=== PATIENT | female | born 1950 | race Caucasian/White ===

== ENCOUNTER 2017-01-16 20:41 | Emergency (ER) | payer OTHER ==
[~2017-01-16] VITALS: Ht 165.1 cm; Wt 111.5 kg
[2017-01-16 20:45] VITALS: BP 154/76; PULSE 82; RESP 24; TEMP 98; O2SAT 96
[2017-01-16] MEDS ORDERED: METO-424 PO (21:07)
--- NOTE | 2017-01-16 21:07 | PD ---
HPI Chief Complaint: R Shoulder Pain Time Seen by Provider: 20:54 Travel History International Travel<30 days: No Contact w/Intl Traveler<30days: No History of Present Illness HPI 66-year-old female arrives with a complaint of pain in the region of the posterior right shoulder primarily in the trapezius distribution with some radiation to the level of the midportion of the humerus. Symptoms became quite severe about an hour and half ago. A few days ago she had been somewhat more active than normal involved with packing and moving. She was seen in urgent care center that sent her here for further investigation. Today the pain has become constant and severe. She's had no numbness tingling or weakness in either upper extremity. Left upper extremity feels normal. No recent fever. No hx neoplasia/cancer, no history immunomodulator medication. No fecal incontinence or urinary overflow incontinence. No chest pain. Pt reported shortness of breath to triage nurse however to me reports symptoms c/w copd. She denied cp and fever. PFSH Past Medical History COPD: Yes Social History Alcohol Use: No Tobacco Use: No Substance Use: No Allergies-Medications (Allergen,Severity, Reaction): Coded Allergies: Sulfa (Verified Adverse Reaction, Severe, Itching, 01/16/17) Baclofen (Verified Adverse Reaction, Mild, Psychosis, 01/16/17) Reported Meds & Prescriptions Reported Meds & Active Scripts Active Guaifenesin AC Liq (Guaifenesin-Codeine Liq) 100-10 Mg/5 Ml Syrp 10 Ml PO HS PRN 5 Days Prednisone 20 Mg Tab 40 Mg PO DAILY 4 Days Take 40 mg (2 tablets) daily for 5 days Reported Co Q 10 (Coenzyme Q10 (Ubidecarenone)) 10 Mg Cap Unknown Dose PO DAILY [crill oil] PO DAILY Probiotic (L.acidoph,Paracasei, B.lactis) 1 Each Capsule PO DAILY Vitamin B52-[id number] Acid (Cobalamine Combinations) 500-400 Mcg Tab 1 Tab PO DAILY Fenofibrate 40 Mg Tab Unknown Dose PO HS Breo Ellipta Inh (Fluticasone/Vilanterol) 200-25 Mcg/Act Inh 1 Puff INH DAILY Use daily at the same time. Levothyroxine (Levothyroxine Sodium) 75 Mcg Tab 75 Mcg PO DAILY Ranitidine (Ranitidine HCl) 150 Mg Cap Unknown Dose PO DAILY Nexium (Esomeprazole DR) 20 Mg Capdr Unknown Dose PO HS Nexium (Esomeprazole DR) 20 Mg Capdr Unknown Dose PO DAILY Metformin (Metformin HCl) 500 Mg Tab Unknown Dose PO TIDPC With meals Metoprolol Tartrate 37.5 Mg Tab Unknown Dose PO BID Review of Systems Except as stated in HPI: all other systems reviewed are Neg General / Constitutional: No: Fever Physical Exam Narrative GENERAL: 66 yo F, mild to moderate distress 2/2 pain, pleasant SKIN: Warm and dry. HEAD: Atraumatic. Normocephalic. EYES: Pupils equal and round. No scleral icterus. No injection or drainage. ENT: No nasal bleeding or discharge. Mucous membranes pink and moist. NECK: Trachea midline. No JVD. CARDIOVASCULAR: Regular rate and rhythm. RESPIRATORY: No accessory muscle use. Clear to auscultation. Breath sounds equal bilaterally. GASTROINTESTINAL: Abdomen soft, non-tender, nondistended. Hepatic and splenic margins not palpable. MUSCULOSKELETAL: Extremities without clubbing, cyanosis, or edema. No obvious deformities. NEUROLOGICAL: Awake and alert. No obvious cranial nerve deficits. Motor grossly within normal limits. Five out of 5 muscle strength in the arms and legs. Normal speech. PSYCHIATRIC: Appropriate mood and affect; insight and judgment normal. Data Data Last Documented VS Vital Signs Date Time Temp Pulse Resp B/P Pulse Ox O2 Delivery O2 Flow Rate FiO2 01/16/17 22:41 18 01/16/17 22:11 87 130/82 99 Room Air 01/16/17 20:45 98.0 VS reviewed Orders Electrocardiogram (01/16/17 20:54) Chest, Single Ap (01/16/17 20:54) Acetamin-Hydrocod 325-5 Mg ([place] 5-325 (01/16/17 21:15) Ketorolac Inj (Toradol Inj) (01/16/17 21:15) Oxycodone (Roxicodone) (01/16/17 21:45) Prednisone (Deltasone) (01/16/17 21:45) Albuterol-Ipratropium Neb (Duoneb Neb) (01/16/17 21:45) ^ Sling (01/16/17 21:40) Prednisone (Deltasone) (01/16/17 22:00) MDM Medical Decision Making Medical Screen Exam Complete: Yes Emergency Medical Condition: Yes Medical Record Reviewed: Yes Differential Diagnosis radiculopathy, glenohumeral disease, septic arthritis, coronary disease Narrative Course Last 24 hours Impressions Chest X-Ray 01/16/172053 Signed Impressions: Service Date/Time: Monday, January 16, 2017 21:09 - CONCLUSION: The lungs are clear. Cruz Verma MD At time of reassessment approximately 9:15 PM the patient reported some shortness of breath and a cough. The cough is chronic. The shortness of breath has gotten worse over the past few days. She reports finishing a course of azithromycin and prednisone within the past week or so. DuoNeb ordered along with oral prednisone. Patient reports significant improvement at time of reassessment approximately 10:15pm. Return precautions were discussed at that point. Follow up with Dr. Ochoa was also discussed which the patient was agreeable with as a plan. Diagnosis Primary Impression: Shoulder pain, right Qualified Code: M25.511 - Acute pain of right shoulder Additional Impression: COPD (chronic obstructive pulmonary disease) Qualified Code: J44.9 - Chronic obstructive pulmonary disease, unspecified COPD type Referrals: David Ochoa MD 2 days Additional Instructions: You have a choice when it comes to health care, and we are glad that you chose [facility]. Hopefully, we have met your expectations on today's visit. You are welcome to return to [facility] at any time, as we are committed to meeting the health care needs of our community. Med/Other Pt SpecificInfo: Prescription(s) given Scripts Guaifenesin-Codeine Liq (Guaifenesin AC Liq)100-10 Mg/5 Ml Syrp10 Ml PO HS PRN ( COUGH) 5 Days Ref 0 Prov:Dimas Forte MD 01/16/17 Prednisone 20 Mg Tab40 Mg PO DAILY 4 Days Ref 0 Take 40 mg (2 tablets) daily for 5 days Prov:Dimas Forte MD 01/16/17 Disposition: 01 DISCHARGE HOME Condition: Stable Dimas Forte MD Jan 16, 2017 21:07
[2017-01-16] MEDS ORDERED: NEXI20CA PO ×2 (21:10)
[2017-01-16] MEDS ORDERED: LEVO75TA3 PO (21:10)
[2017-01-16] MEDS ORDERED: FENO1TAB46 PO (21:10)
[2017-01-16] MEDS ORDERED: FLUT1INH7 INH (21:10)
[2017-01-16] MEDS ORDERED: RANI150C PO (21:10)
[2017-01-16] MEDS ORDERED: METF500T PO (21:10)
[2017-01-16] MEDS ORDERED: [UNRECOGNIZED DRUG - OTHER] PO (21:14)
[2017-01-16] MEDS ORDERED: VITATAB43 PO (21:14)
[2017-01-16] MEDS ORDERED: CO Q10CA PO (21:14)
[2017-01-16] MEDS ORDERED: crill oil PO (21:14)
[2017-01-16] MEDS ORDERED: KETOROLAC TROMETHAMINE 60 MG/2 ML (IM) VIAL IM ONE (21:15)
[2017-01-16] MEDS ORDERED: ACETAMINOPHEN/HYDROcodone 325 MG/5 MG TAB PO ONE (21:15)
--- NOTE | 2017-01-16 21:23 | RADRPT ---
EXAM DATE/TIME: 01/16/2017 21:09 [facility] COMPARISON: No previous studies available for comparison. INDICATIONS : Right chest and shoulder pain. MEDICAL HISTORY : None. SURGICAL HISTORY : None. ENCOUNTER: Initial ACUITY: 1 day PAIN SCORE: 8/10 LOCATION: Right chest FINDINGS: A single view of the chest demonstrates the lungs to be symmetrically aerated without evidence of mas s, infiltrate or effusion. The cardiomediastinal contours are unremarkable. Osseous structures are intact. CONCLUSION: The lungs are clear. Cruz Verma MD on January 16, 2017 at 21:21 Board Certified Radiologist. This report was verified electronically.
[2017-01-16] MEDS ORDERED: predniSONE 20 MG TAB PO ONE ×2 (21:45→22:00)
[2017-01-16] MEDS: RESP: ALBUTEROL 2.5 MG/IPRATROPIUM 0.5 MG NEB (SCH) INH ×2 (21:50→21:51)
[2017-01-16] MEDS ORDERED: GUAISYP4 PO (22:04)
[2017-01-16] MEDS ORDERED: PRED20 PO (22:04)
[2017-01-16 22:11] VITALS: BP 130/82; PULSE 87; RESP 18; O2SAT 99
[2017-01-16 22:41] VITALS: RESP 18
--- NOTE | 2017-01-17 13:14 | EKG ---
Date Performed: 01/16/2017 Time Performed: 20:56:48 PTAGE: 66 years EKG: Sinus rhythm NORMAL ECG NO PREVIOUS TRACING DOCTOR: Donavan Redmond Interpretating Date/Time 01/17/2017 13:11:18
== END 2017-01-16 22:44 | disposition home or self-care (01) ==
LOC: PHED 20:41
DX: M25.511 Pain in right shoulder (principal); J44.9 Chronic obstructive pulmonary disease, unspecified; R06.02 Shortness of breath; Z87.09 Personal history of other diseases of the respiratory system
CPT/HCPCS: 71010; 93005; 94640; 94664; 96372; 99284; J1885; J7512

== ENCOUNTER 2017-03-05 12:03 | Emergency (ER) | payer OTHER ==
[~2017-03-05] VITALS: Ht 165.1 cm; Wt 111.0 kg
[~2017-03-05 12:03] MED LIST: CO Q10CA PO; FENO1TAB46 PO; FLUT1INH7 INH; GUAISYP4 PO; LEVO75TA3 PO; METF500T PO; METO-424 PO; NEXI20CA PO; PRED20 PO; RANI150C PO; VITATAB43 PO; [UNRECOGNIZED DRUG - OTHER] PO; crill oil PO
[2017-03-05 12:10] VITALS: BP 146/70; PULSE 76; RESP 20; TEMP 98.6; O2SAT 98
[2017-03-05] MEDS ORDERED: ACETAMINOPHEN/HYDROcodone 325 MG/5 MG TAB PO ONE (12:30)
--- NOTE | 2017-03-05 12:30 | PD ---
HPI Chief Complaint: Fall Time Seen by Provider: 12:24 Travel History International Travel<30 days: No Contact w/Intl Traveler<30days: No Traveled to known affect area: No History of Present Illness HPI 66 YO F presents to the ED for evaluation of left knee and wrist pain after mechanical fall from standing onto black top. She denies hitting her head or loss of consciousness. She has been ambulatory since the accident. Pain in the knee is worsened by ambulation. She denies numbness, tingling, weakness, limited ROM of the affected extremities. Also complains of abrasion of the right great toe, tetanus immunization UTD. PFS Past Medical History Asthma: Yes Cardiovascular Problems: Yes (HTN) COPD: Yes Diabetes: No Diminished Hearing: No Endocrine: Yes (splenomegaly) GERD: Yes Hypertension: Yes Respiratory: Yes Thyroid Disease: Yes (hypo) Past Surgical History Cholecystectomy: Yes Gynecologic Surgery: Yes (hysterectomy) Hysterectomy: Yes Tonsillectomy: Yes Social History Alcohol Use: No Tobacco Use: No Substance Use: No Allergies-Medications (Allergen,Severity, Reaction): Coded Allergies: Sulfa (Sulfonamide Antibiotics) (Unverified Adverse Reaction, Severe, Itching, 03/05/17) baclofen (Unverified Adverse Reaction, Mild, Psychosis, 03/05/17) Reported Meds & Prescriptions Reported Meds & Active Scripts Active Reported Co Q 10 (Coenzyme Q10 (Ubidecarenone)) 10 Mg Cap Unknown Dose PO DAILY [crill oil] PO DAILY Probiotic (L.acidoph,Paracasei, B.lactis) 1 Each Capsule PO DAILY Vitamin V98-[id number] Acid (Cobalamine Combinations) 500-400 Mcg Tab 1 Tab PO DAILY Fenofibrate 40 Mg Tab Unknown Dose PO HS Breo Ellipta Inh (Fluticasone/Vilanterol) 200-25 Mcg/Act Inh 1 Puff INH DAILY Use daily at the same time. Levothyroxine (Levothyroxine Sodium) 75 Mcg Tab 75 Mcg PO DAILY Ranitidine (Ranitidine HCl) 150 Mg Cap Unknown Dose PO DAILY Nexium (Esomeprazole DR) 20 Mg Capdr Unknown Dose PO DAILY Metformin (Metformin HCl) 500 Mg Tab Unknown Dose PO TIDPC With meals Metoprolol Tartrate 37.5 Mg Tab Unknown Dose PO BID Review of Systems Except as stated in HPI: all other systems reviewed are Neg Physical Exam Narrative GENERAL: Well-nourished, well-developed obese white female in no acute distress. SKIN: Focused skin assessment warm/dry. 1 cm abrasion on the medial aspect of the right great toe, superficial abrasion of the anterior aspect of left knee HEAD: Normocephalic. EYES: No scleral icterus. No injection or drainage. NECK: Supple, trachea midline. No JVD or lymphadenopathy. CARDIOVASCULAR: Regular rate and rhythm without murmurs, gallops, or rubs. RESPIRATORY: Breath sounds clear and equal bilaterally. No accessory muscle use. GASTROINTESTINAL: Abdomen soft, non-tender, nondistended. Active bowel sounds. MUSCULOSKELETAL: No cyanosis, or edema. FOCUSED LEFT UPPER EXTREMITY EXAM: 2+ RADIAL PULSE. NO TENDERNESS TO PALPATION OF THE ELBOW. TENDER TO PALPATION OF THE DISTAL ULNA. STRONG FINGER TO THUMB OPPOSITION WITH EACH FINGER. OPPOSITION OF THE CYSTS OF THE THUMB ELICITS PAIN. NO TENDERNESS TO PALPATION OF THE BONES OF THE HAND. NEUROVASCULARLY INTACT. FOCUSED LEFT LOWER EXTREMITY EXAM: 2+ DP pulse. Tender to palpation of the anterior aspect of the knee. No patellar balloting. No popliteal tenderness. Patient maintains full, active, painless ROM of the knee and ankle. Neurovascularly intact. BACK: Nontender without obvious deformity. No CVA tenderness. Data Data Last Documented VS Vital Signs Date Time Temp Pulse Resp B/P (MAP) Pulse Ox O2 Delivery O2 Flow Rate FiO2 03/05/17 12:10 98.6 76 20 146/70 (95) 98 Orders Orders Knee, Complete (4vws) (03/05/17 12:23) Wrist, Complete (Odu3bjl) (03/05/17 12:23) Ice/Cold Pack (03/05/17 12:23) Acetamin-Hydrocod 325-5 Mg ([place] 5-325 (03/05/17 12:30) Tramadol (Ultram) (03/05/17 13:45) MDM Medical Decision Making Medical Screen Exam Complete: Yes Emergency Medical Condition: Yes Differential Diagnosis Abrasion versus contusion versus musculoskeletal pain versus knee effusion versus wrist fracture versus other Narrative Course 66 YO F presents to the ED for evaluation of left knee and wrist pain after mechanical fall from standing onto black top. She denies hitting her head or loss of consciousness. She has been ambulatory since the accident. Pain in the knee is worsened by ambulation. She denies numbness, tingling, weakness, limited ROM of the affected extremities. Vitals reviewed. On physical exam the patient has tenderness to palpation of the distal ulna as well as pain elicited with finger-thumb opposition of the fifth digit on the left hand. There is a superficial abrasion and tenderness of the anterior left knee without patellar balloting or limitations to Sylvester. Small abrasion on the right toe. Ice pack was administered. Patient was offered narcotic pain medication which she initially refused but ultimately wound up taking. X-rays of the knee and wrist reveal no acute bony injury. This is contusion and abrasion. Patient was instructed to use supportive measures, follow up with the primary care provider. 4 inch Flavio was applied to the left wrist. She is stable and discharged home. Diagnosis Primary Impression: Abrasion foot/toe Additional Impressions: Contusion of left wrist, initial encounter Knee pain, left anterior Referrals: Primary Care Physician Patient Instructions: Abrasion (GEN), Contusion in Adults (ED), General Instructions Additional Instructions: Rest, hydrate. Resume normal, gentle activities as tolerated. No strenuous physical activities for the next few days. Elevating the knee will help with throbbing pain. Applying ice or heat to areas with sore muscles may help to improve your pain. Do not apply ice/ heat for longer than 20 m/h. Follow-up with your primary care provider. Return to the ED for any urgent or emergent medical condition. Disposition: 01 DISCHARGE HOME Condition: Stable Alannah Felipe Mar 05, 2017 12:30
--- NOTE | 2017-03-05 12:58 | RADRPT ---
EXAM DATE/TIME: 03/05/2017 12:35 [facility] COMPARISON: No previous studies available for comparison. INDICATIONS : Fell this afternoon. MEDICAL HISTORY : None. SURGICAL HISTORY : None. ENCOUNTER: Initial ACUITY: 1 day PAIN SCORE: 2/10 LOCATION: Left Knee FINDINGS: Four view examination of the left knee demonstrates no evidence of fracture or dislocation. Bony min eralization is normal. Mild degenerative changes. The articular surfaces are intact. The suprapatel lar soft tissues have a normal configuration. CONCLUSION: Mild degenerative changes without fracture. Michael Fortune MD on March 05, 2017 at 12:56 Board Certified Radiologist. This report was verified electronically.
[2017-03-05] MEDS ORDERED: traMADol HCL 50 MG TAB PO ONE (13:45)
--- NOTE | 2017-03-05 13:56 | RADRPT ---
EXAM DATE/TIME: 03/05/2017 12:41 [facility] COMPARISON: KNEE LEFT COMPLETE (4VWS), March 05, 2017, 12:35. INDICATIONS : Fall this afternoon. Pain on medial side. MEDICAL HISTORY : None. SURGICAL HISTORY : None. ENCOUNTER: Initial ACUITY: 1 day PAIN SCORE: 8/10 LOCATION: Left Wrist FINDINGS: Three view examination of the left wrist demonstrates no soft tissue swelling, dislocation, or fractu re. The carpal bones are in normal alignment. The joint spaces are maintained. Bony mineralization is normal. CONCLUSION: 1. No acute bony abnormality identified. Dimas Yoo MD on March 05, 2017 at 13:53 Board Certified Radiologist. This report was verified electronically.
== END 2017-03-05 14:13 | disposition home or self-care (01) ==
LOC: PHEFT 12:03
DX: M25.562 Pain in left knee (principal); S60.212A Contusion of left wrist, initial encounter; W19.XXXA Unspecified fall, initial encounter; I10 Essential (primary) hypertension; J44.9 Chronic obstructive pulmonary disease, unspecified; K21.9 Gastro-esophageal reflux disease without esophagitis
CPT/HCPCS: 73110; 73564; 99284